=== PATIENT | male | born 1985 | race African-American/Black ===

== ENCOUNTER 2017-11-02 14:43 | Emergency (ER) | payer OTHER ==
[~2017-11-02] VITALS: Ht 172.7 cm; Wt 75.3 kg
[2017-11-02 14:46] VITALS: TEMP 36.7; Ht 172.7 cm; Wt 75.3 kg
[2017-11-02] MEDS ORDERED: FLUO10CA48 PO (14:59)
[2017-11-02] MEDS ORDERED: SNQ/25 PO (14:59)
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
--- NOTE | 2017-11-02 15:57 | DIAGNOSTIC IMAGING REPORT ---
L SHOULDER MIN 2 VIEWS ROUTINE HISTORY: 32 years-old Male L shoulder pain acute left shoulder pain without reported trauma COMPARISON: None available TECHNIQUE: 3 views of the left shoulder FINDINGS: No acute fracture, dislocation or significant degenerative changes. No intra-articular loose body, focal soft tissue abnormality or opaque foreign body. IMPRESSION: 1. No acute fracture or dislocation. 2. No significant degenerative changes. The above report was generated using voice recognition software. It may contain grammatical, syntax or spelling errors. Electronically signed by: Ranjith Welch M.D. 11/02/2017 3:55 PM Dictated Date/Time: 11/02/2017 3:54 PM
[2017-11-02 16:23] VITALS: BP 130/80; PULSE 87; O2SAT 97
== END 2017-11-02 16:24 ==
LOC: C.EDB 14:45 → C.EDD 16:24
DX: M25.512 Pain in left shoulder (principal); Y04.0XXA Assault by unarmed brawl or fight, initial encounter; F17.200 Nicotine dependence, unspecified, uncomplicated